=== PATIENT | male | born 1965 | race Caucasian/White ===

== ENCOUNTER → 2017-01-19 | Outpatient (REF) | payer OTHER ==
[2017-01-19 13:15] LABS: ALBUMIN 4.2 GM/DL (3.2-5.2); ALBUMIN/GLOBULIN RATIO 0.98 (1.00-1.93); ALKALINE PHOSPHATASE 87 U/L (45-117); ALT/SGPT 54 U/L (12-78); ANION GAP 7 MEQ/L (8-16); AST/SGOT 38 U/L (15-37); BILIRUBIN,TOTAL 0.8 MG/DL (0.2-1.0); BLOOD UREA NITROGEN 14 MG/DL (7-18); CALCIUM LEVEL 9.8 MG/DL (8.5-10.1); CARBON DIOXIDE LEVEL 28 MEQ/L (21-32); CHLORIDE LEVEL 104 MEQ/L (98-107); CHOLESTEROL LEVEL 208 MG/DL (<200); CREATININE FOR GFR 1.02 MG/DL (0.70-1.30); GLOMERULAR FILTRATION RATE > 60.0 (>56); GLUCOSE, FASTING 95 MG/DL (70-105); POTASSIUM SERUM 4.4 MEQ/L (3.5-5.1); SODIUM LEVEL 139 MEQ/L (136-145); TOTAL PROTEIN 8.5 GM/DL (6.4-8.2); TRIGLYCERIDES LEVEL 146 MG/DL (<150)
== END ==
LOC: M SFHCADAM 08:00
PROVIDERS: ATTEND Family Medicine
DX: E78.2 Mixed hyperlipidemia (principal)

== ENCOUNTER → 2017-07-28 | Outpatient (REF) | payer OTHER ==
[2017-07-28 12:44] LABS: HEMATOCRIT 52.4 % (42.0-52.0); HEMOGLOBIN 18.3 g/dl (14.0-18.0); MEAN CORPUSCULAR HEMOGLOBIN 32.4 pg (27.0-33.0); MEAN CORPUSCULAR HGB CONC 34.9 g/dl (32.0-36.5); MEAN CORPUSCULAR VOLUME 92.9 fl (80.0-96.0); PLATELET COUNT, AUTOMATED 211 10^3/uL (150-450); RED BLOOD COUNT 5.64 10^6/uL (4.30-6.10); RED CELL DISTRIBUTION WIDTH 13.2 % (11.5-14.5); WHITE BLOOD COUNT 5.9 10^3/uL (4.0-10.0)
[2017-07-28 12:54] LABS: ALBUMIN 4.2 GM/DL (3.2-5.2); ALBUMIN/GLOBULIN RATIO 1.62 (1.00-1.93); ALKALINE PHOSPHATASE 99 U/L (45-117); ALT/SGPT 41 U/L (12-78); ANION GAP 6 MEQ/L (8-16); AST/SGOT 23 U/L (7-37); BILIRUBIN,TOTAL 0.4 MG/DL (0.2-1.0); BLOOD UREA NITROGEN 22 MG/DL (7-18); CALCIUM LEVEL 8.9 MG/DL (8.5-10.1); CARBON DIOXIDE LEVEL 29 MEQ/L (21-32); CHLORIDE LEVEL 104 MEQ/L (98-107); CHOLESTEROL LEVEL 250 MG/DL (<200); CHOLESTEROL RISK RATIO 6.097 (<5); CREATININE FOR GFR 1.12 MG/DL (0.70-1.30); GLOMERULAR FILTRATION RATE > 60.0 (>56); GLUCOSE, FASTING 103 MG/DL (70-105); HDL CHOLESTEROL 41 MG/DL (>40); LDL CHOLESTEROL 141.4 MG/DL (<100); NON-HDL-C 209 MG/DL; POTASSIUM SERUM 4.9 MEQ/L (3.5-5.1); PSA SCREENING 4.17 NG/ML (< 4.0); SODIUM LEVEL 139 MEQ/L (136-145); TOTAL PROTEIN 6.8 GM/DL (6.4-8.2); TRIGLYCERIDES LEVEL 338 MG/DL (<150)
== END ==
LOC: M SFHCADAM 08:41
DX: D75.1 Secondary polycythemia (principal); K62.5 Hemorrhage of anus and rectum; I10 Essential (primary) hypertension; E78.2 Mixed hyperlipidemia; Z12.5 Encounter for screening for malignant neoplasm of prostate

== ENCOUNTER 2017-08-06 10:18 | Day surgery (SDC) | payer OTHER ==
[2017-08-06] MEDS: NS 1,000 ML IV (10:33)
[2017-08-06] MEDS ORDERED: LIDOCAINE 2% INJ 100 MG/5 ML SDV (FOR ANES.) As Ordered (10:57)
[2017-08-06] MEDS ORDERED: PROPOFOL 200 MG/20 ML VIAL As Ordered ×2 (10:57)
[2017-08-06] MEDS ORDERED: GLYCOPYRROLATE INJ 0.2 MG/ML 2 ML VIAL As Ordered (11:11)
== END 2017-08-06 11:53 | disposition home or self-care (01) ==
LOC: M OPP 10:18
DX: Z12.11 Encounter for screening for malignant neoplasm of colon (principal); K64.8 Other hemorrhoids; K62.5 Hemorrhage of anus and rectum; R12 Heartburn; K22.8 Other specified diseases of esophagus; I10 Essential (primary) hypertension; K44.9 Diaphragmatic hernia without obstruction or gangrene; K21.9 Gastro-esophageal reflux disease without esophagitis; Z85.828 Personal history of other malignant neoplasm of skin; M54.9 Dorsalgia, unspecified; J45.909 Unspecified asthma, uncomplicated; G47.8 Other sleep disorders; G47.30 Sleep apnea, unspecified; R06.83 Snoring; Z79.82 Long term (current) use of aspirin; Z79.899 Other long term (current) drug therapy
CPT/HCPCS: 45378

== ENCOUNTER → 2018-02-16 | Outpatient (REF) | payer OTHER ==
[2018-02-16 12:50] LABS: ALBUMIN 3.8 GM/DL (3.2-5.2); ALBUMIN/GLOBULIN RATIO 1.31 (1.00-1.93); ALKALINE PHOSPHATASE 86 U/L (45-117); ALT/SGPT 44 U/L (12-78); ANION GAP 5 MEQ/L (8-16); AST/SGOT 20 U/L (7-37); BILIRUBIN,TOTAL 0.4 MG/DL (0.2-1.0); BLOOD UREA NITROGEN 20 MG/DL (7-18); CALCIUM LEVEL 8.7 MG/DL (8.5-10.1); CARBON DIOXIDE LEVEL 31 MEQ/L (21-32); CHLORIDE LEVEL 109 MEQ/L (98-107); CHOLESTEROL LEVEL 199 MG/DL (<200); CHOLESTEROL RISK RATIO 5.236 (<5); CREATININE FOR GFR 1.24 MG/DL (0.70-1.30); GLOMERULAR FILTRATION RATE > 60.0 (>56); GLUCOSE, FASTING 110 MG/DL (70-100); HDL CHOLESTEROL 38 MG/DL (>40); NON-HDL-C 161 MG/DL; PROSTATIC SPECIFIC AG MONITOR 3.17 NG/ML (< 4.0); SODIUM LEVEL 145 MEQ/L (136-145); TOTAL PROTEIN 6.7 GM/DL (6.4-8.2); TRIGLYCERIDES LEVEL 265 MG/DL (<150)
[2018-02-16 12:58] LABS: HEMOGLOBIN 17.7 g/dl (13.5-17.5); MEAN CORPUSCULAR HEMOGLOBIN 32.6 pg (27.0-33.0); MEAN CORPUSCULAR VOLUME 95.8 fl (80.0-96.0); PLATELET COUNT, AUTOMATED 172 10^3/uL (150-450); RED BLOOD COUNT 5.43 10^6/uL (4.30-6.10); RED CELL DISTRIBUTION WIDTH 13.3 % (11.5-14.5)
== END ==
LOC: M SFHCADAM 08:03
DX: D75.1 Secondary polycythemia (principal); E78.2 Mixed hyperlipidemia; R97.20 Elevated prostate specific antigen [PSA]

== ENCOUNTER → 2018-08-04 | Outpatient (CLI) | payer OTHER ==
[~2018-08-04] MED LIST: ASPI1TAB PO; CLAR10CA3 PO; LISI10TA4 PO; OMEP20CA3 PO; VENTAER INH; VIAG100T PO
--- NOTE | 2018-08-04 14:13 | REP ---
Emergency MRI study right knee without contrast: History: Rule out quadriceps tendon tear. No comparison imaging. Technique: Axial, coronal and sagittal imaging planes were utilized. T1 and T2-weighted scans are included with and without fat saturation. MRI findings: Patellar and quadriceps tendons appear intact. Medial and lateral patellar retinacular structures are intact. There is a focus of T2 hyperintensity and swelling at the distal attachment of the quadriceps tendon consistent with a partial tear. No retraction is seen. There is a small joint effusion. There is no evidence of Meeks's cyst. There is diffuse subcutaneous edema almost circumferentially about the knee. The anterior and posterior cruciate ligaments appear intact. There is a small subcortical cyst beneath the tibial spines in the proximal tibia. There is no evidence of medial or lateral collateral ligament disruption. There is, however, abnormal signal intensity and some irregularity of the posterior body of the medial meniscus and of the posterior horn of the medial meniscus consistent with a tear. Signal intensity is seen along the inferior aspect of the midbody of the medial meniscus as well. The lateral meniscus appears intact. No articular cartilage abnormality is appreciated. There is a bone island in the lateral femoral condyle and another in the proximal fibula. Impression: There is evidence of a posterior horn medial meniscal tear and degenerative changes seen in the midbody of the medial meniscus. A joint effusion is noted. There is periarticular subcutaneous edema. There is a focus of T2 hyperintensity in the distal quadriceps tendon at its insertion on the upper pole of the patella which may be a small focal tear. No complete tear is seen. Electronically Signed by Ulises Gonzalez MD 08/04/2018 04:25 P
== END ==
LOC: M RAD 12:13
PROVIDERS: ATTEND Orthopaedic Surgery Sports Medicine
DX: M17.11 Unilateral primary osteoarthritis, right knee (principal); M85.461 Solitary bone cyst, right tibia and fibula; M25.461 Effusion, right knee; R60.0 Localized edema; M66.861 Spontaneous rupture of other tendons, right lower leg

== ENCOUNTER → 2019-02-15 | Outpatient (REF) | payer OTHER ==
[~2019-02-15] MED LIST changes: -ASPI1TAB PO; +ASPI81TA26 PO; -OMEP20CA3 PO; +OMEP20CA4 PO
[2019-02-15 12:33] LABS: BASO # 0.1 10^3/uL (0.0-0.2); BASO % 0.9 % (0.0-1.0); EOS # 0.1 10^3/uL (0.0-0.50); EOS % 2.4 % (0.0-3.0); HEMATOCRIT 50.2 % (42.0-52.0); HEMOGLOBIN 17.7 g/dl (13.5-17.5); LYMPH # 1.4 10^3/uL (1.5-4.5); LYMPH % 26.5 % (24.0-44.0); MEAN CORPUSCULAR HEMOGLOBIN 32.5 pg (27.0-33.0); MEAN CORPUSCULAR HGB CONC 35.3 g/dl (32.0-36.5); MEAN CORPUSCULAR VOLUME 92.3 fl (80.0-96.0); MONO # 0.6 10^3/uL (0.0-0.8); MONO % 10.6 % (0.0-5.0); NEUTROPHILS # 3.2 10^3/uL (1.8-7.7); NEUTROPHILS % 59.2 % (36.0-66.0); PLATELET COUNT, AUTOMATED 195 10^3/uL (150-450); RED BLOOD COUNT 5.44 10^6/uL (4.30-6.10); WHITE BLOOD COUNT 5.4 10^3/uL (4.0-10.0)
[2019-02-15 12:56] LABS: ALBUMIN 3.9 GM/DL (3.2-5.2); ALT/SGPT 40 U/L (12-78); AMYLASE 54 U/L (25-115); BILIRUBIN,TOTAL 0.4 MG/DL (0.2-1.0); BLOOD UREA NITROGEN 22 MG/DL (7-18); CALCIUM LEVEL 9.2 MG/DL (8.5-10.1); CARBON DIOXIDE LEVEL 29 MEQ/L (21-32); CHLORIDE LEVEL 107 MEQ/L (98-107); CREATININE FOR GFR 1.32 MG/DL (0.70-1.30); GLOMERULAR FILTRATION RATE > 60.0 (>56); GLUCOSE, FASTING 92 MG/DL (70-100); LIPASE 240 U/L (73-393); POTASSIUM SERUM 4.9 MEQ/L (3.5-5.1); SODIUM LEVEL 141 MEQ/L (136-145); TOTAL PROTEIN 6.6 GM/DL (6.4-8.2)
== END ==
LOC: M LABDRWAD 12:11
PROVIDERS: ATTEND Physician Assistant Medical
DX: R10.9 Unspecified abdominal pain (principal)

== ENCOUNTER → 2019-04-07 | Outpatient (REF) | payer OTHER ==
[2019-04-07 12:37] LABS: HEMATOCRIT 52.2 % (42.0-52.0); MEAN CORPUSCULAR HEMOGLOBIN 32.3 pg (27.0-33.0); MEAN CORPUSCULAR HGB CONC 34.5 g/dl (32.0-36.5); MEAN CORPUSCULAR VOLUME 93.7 fl (80.0-96.0); PLATELET COUNT, AUTOMATED 183 10^3/uL (150-450); RED BLOOD COUNT 5.57 10^6/uL (4.30-6.10); WHITE BLOOD COUNT 5.9 10^3/uL (4.0-10.0)
[2019-04-07 12:50] LABS: ALT/SGPT 42 U/L (12-78); BILIRUBIN,TOTAL 0.4 MG/DL (0.2-1.0); BLOOD UREA NITROGEN 24 MG/DL (7-18); CALCIUM LEVEL 9.4 MG/DL (8.5-10.1); CARBON DIOXIDE LEVEL 25 MEQ/L (21-32); CHLORIDE LEVEL 106 MEQ/L (98-107); CHOLESTEROL LEVEL 227 MG/DL (<200); CREATININE FOR GFR 0.94 MG/DL (0.70-1.30); GLOMERULAR FILTRATION RATE > 60.0 (>56); GLUCOSE, FASTING 92 MG/DL (70-100); HDL CHOLESTEROL 39 MG/DL (>40); LDL CHOLESTEROL 128 MG/DL (<100); NON-HDL-C 188 MG/DL; PROSTATIC SPECIFIC AG MONITOR 3.11 NG/ML (< 4.00); SODIUM LEVEL 141 MEQ/L (136-145); TOTAL PROTEIN 6.6 GM/DL (6.4-8.2); TRIGLYCERIDES LEVEL 298 MG/DL (<150)
[2019-04-07 13:58] LABS: HEMOGLOBIN A1c 5.4 %
== END ==
LOC: M SFHCADAM 08:24
PROVIDERS: ATTEND Family Medicine
DX: D75.1 Secondary polycythemia (principal); E78.2 Mixed hyperlipidemia; R73.03 Prediabetes; R97.20 Elevated prostate specific antigen [PSA]

== ENCOUNTER → 2019-05-30 | Outpatient (CLI) | payer OTHER ==
[~2019-05-30] MED LIST changes: +IRBE75TA5 PO
--- NOTE | 2019-05-31 04:36 | REP ---
Clinical: Bronchitis . Comparison: None . Technique: PA and lateral. Findings: The mediastinum and cardiac silhouette are normal. The lung madera are clear and without acute consolidation, effusion, or pneumothorax. The skeletal structures are intact and normal. Impression: 1. No acute cardiopulmonary process. Electronically Signed by Jose Oliver MD 05/31/2019 04:28 A
== END ==
LOC: M ADAMS 08:34
PROVIDERS: ATTEND Physician Assistant
DX: J40 Bronchitis, not specified as acute or chronic (principal)

== ENCOUNTER → 2019-06-28 | Outpatient (REF) | payer OTHER ==
[~2019-06-28] MED LIST changes: +OMEP-172 PO; -OMEP20CA4 PO
[2019-06-28 13:42] LABS: HEMATOCRIT 53.8 % (42.0-52.0); HEMOGLOBIN 18.7 g/dl (13.5-17.5); MEAN CORPUSCULAR HEMOGLOBIN 32.5 pg (27.0-33.0); MEAN CORPUSCULAR HGB CONC 34.8 g/dl (32.0-36.5); MEAN CORPUSCULAR VOLUME 93.4 fl (80.0-96.0); PLATELET COUNT, AUTOMATED 206 10^3/uL (150-450); RED BLOOD COUNT 5.76 10^6/uL (4.30-6.10); WHITE BLOOD COUNT 5.6 10^3/uL (4.0-10.0)
[2019-06-28 14:00] LABS: BLOOD UREA NITROGEN 19 MG/DL (7-18); CALCIUM LEVEL 9.3 MG/DL (8.5-10.1); CARBON DIOXIDE LEVEL 29 MEQ/L (21-32); CHLORIDE LEVEL 108 MEQ/L (98-107); CREATININE FOR GFR 1.18 MG/DL (0.70-1.30); GLOMERULAR FILTRATION RATE > 60.0 (>56); GLUCOSE, FASTING 93 MG/DL (70-100); POTASSIUM SERUM 5.2 MEQ/L (3.5-5.1); SODIUM LEVEL 140 MEQ/L (136-145)
== END ==
LOC: M SFHCADAM 10:50
PROVIDERS: ATTEND Family Medicine
DX: J44.9 Chronic obstructive pulmonary disease, unspecified (principal); I10 Essential (primary) hypertension

== ENCOUNTER → 2019-06-29 | Outpatient (CLI) | payer OTHER ==
[~2019-06-29] MED LIST changes: +ISOVUE-370 76% 100ML VIAL (Q9967) As Ordered ONE
--- NOTE | 2019-06-29 16:00 | REP ---
Clinical: Dyspnea . Technique: Axial contrast enhanced images from the thoracic inlet to the upper abdomen using 100 ml Isovue 370 intravenous contrast material with multiplanar re-formations. Findings: Satisfactory enhancement of the pulmonary vasculature is achieved and no filling defects are identified to suggest pulmonary embolus. Further evaluation of the mediastinum demonstrates normal thoracic aorta, heart and pericardium. The bilateral lung madera are well aerated and clear without consolidation pleural effusion or pneumothorax. Tracheobronchial tree is patent. No nodule or mass lesion is identified. No adenopathy noted. Surrounding musculoskeletal structures intact Impression: No evidence for pulmonary embolus. No acute mediastinal or pleural parenchymal process. Electronically Signed by Jose Oliver MD 06/29/2019 03:52 P
== END ==
LOC: M RAD 14:57
PROVIDERS: ATTEND Family Medicine
DX: J44.9 Chronic obstructive pulmonary disease, unspecified (principal); R05 Cough; R06.09 Other forms of dyspnea
CPT/HCPCS: 71275; Q9967

== ENCOUNTER → 2019-09-19 | Outpatient (REF) | payer OTHER ==
[~2019-09-19] MED LIST changes: +IRBE75TA4 PO; -IRBE75TA5 PO; -ISOVUE-370 76% 100ML VIAL (Q9967) As Ordered ONE; -OMEP-172 PO; +OMEP1CAP73 PO
[2019-09-19 12:57] LABS: HEMATOCRIT 55.2 % (42.0-52.0); MEAN CORPUSCULAR HEMOGLOBIN 31.1 pg (27.0-33.0); MEAN CORPUSCULAR HGB CONC 34.4 g/dl (32.0-36.5); MEAN CORPUSCULAR VOLUME 90.5 fl (80.0-96.0); PLATELET COUNT, AUTOMATED 220 10^3/uL (150-450); WHITE BLOOD COUNT 5.6 10^3/uL (4.0-10.0)
[2019-09-19 13:09] LABS: PERCENT SATURATION 58.7 % (19.7-50.0)
== END ==
LOC: M SFHCADAM 10:45
PROVIDERS: ATTEND Family Medicine
DX: E83.110 Hereditary hemochromatosis (principal)

== ENCOUNTER → 2019-11-24 | Outpatient (CLI) | payer OTHER ==
[~2019-11-24] MED LIST changes: +LISI-542 PO
== END ==
LOC: M LAB 15:27
PROVIDERS: ATTEND Internal Medicine Hematology & Oncology
DX: D75.1 Secondary polycythemia (principal); Z53.9 Procedure and treatment not carried out, unspecified reason

== ENCOUNTER → 2019-11-27 | Outpatient (CLI) | payer OTHER ==
[2019-11-27 12:12] LABS: BASO # 0.1 10^3/uL (0.0-0.2); BASO % 0.8 % (0.0-1.0); EOS # 0.3 10^3/uL (0.0-0.5); EOS % 4.3 % (0.0-3.0); HEMATOCRIT 51.1 % (42.0-52.0); HEMOGLOBIN 17.7 g/dl (13.5-17.5); LYMPH # 1.5 10^3/uL (1.5-5.0); MEAN CORPUSCULAR HEMOGLOBIN 31.2 pg (27.0-33.0); MEAN CORPUSCULAR HGB CONC 34.6 g/dl (32.0-36.5); MEAN CORPUSCULAR VOLUME 90.1 fl (80.0-96.0); MONO # 0.7 10^3/uL (0.0-0.8); MONO % 11.3 % (0.0-5.0); NEUTROPHILS # 3.6 10^3/uL (1.5-8.5); NEUTROPHILS % 58.9 % (36.0-66.0); PLATELET COUNT, AUTOMATED 196 10^3/uL (150-450); RED BLOOD COUNT 5.67 10^6/uL (4.30-6.10); WHITE BLOOD COUNT 6.1 10^3/uL (4.0-10.0)
[2019-11-27 12:25] LABS: FERRITIN 155 NG/ML (26-388)
== END ==
LOC: M LAB 11:08
PROVIDERS: ATTEND Internal Medicine Hematology & Oncology
DX: D75.1 Secondary polycythemia (principal)

== ENCOUNTER → 2019-12-19 | Outpatient (CLI) | payer OTHER ==
--- NOTE | 2019-12-20 03:03 | REP ---
Clinical: History of hemochromatosis and polycythemia. Technique: Real time childs scale ultrasound examination using curved array transducer. Findings: The liver is increased echogenicity with poor through transmission suggesting fatty infiltration and/or hepatocellular disease. No obvious focal hepatic lesion identified. Spleen is normal in contour, size, echogenicity. The pancreas is incompletely evaluated due to interposed bowel gas but visualized portions appear normal. The gallbladder is unremarkable and without gallstones, wall thickening, or pericholecystic fluid. No biliary ductal dilatation is appreciated and the common bile duct measures 5 mm diameter. The bilateral kidneys are normal in reniform shape and echo texture without hydronephrosis or obvious abnormality. Right kidney measures 11.2 x 5.7 x 5.0 cm. Left kidney measures 11.6 x 5.4 x 5.8 cm. Visualized abdominal aorta appears normal but limited due to overlying bowel gas. No ascites. Impression: 1. Findings suggesting hepatocellular disease. No obvious focal hepatic lesion identified. Electronically Signed by Jose Oliver MD 12/20/2019 02:54 A
== END ==
LOC: M RAD 08:31
PROVIDERS: ATTEND Internal Medicine Hematology & Oncology
DX: D75.1 Secondary polycythemia (principal); K76.89 Other specified diseases of liver

== ENCOUNTER 2020-02-29 11:04 | Emergency (ER) | payer OTHER ==
[2020-02-29] MEDS ORDERED: MORPHINE 4 MG/ML 1ML VIAL/SYRINGE (J2270) As Ordered ONE (11:44)
[2020-02-29] MEDS ORDERED: ONDANSETRON 4MG/2ML VIAL As Ordered ONE (11:44)
[2020-02-29] MEDS ORDERED: ONDANSETRON 4MG/2ML VIAL ONE (11:44)
[2020-02-29] MEDS ORDERED: MORPHINE 4 MG/ML 1ML VIAL/SYRINGE (J2270) ONE (11:44)
[2020-02-29] MEDS ORDERED: ISOVUE-370 76% 100ML VIAL As Ordered ONE (14:09)
[2020-02-29] MEDS ORDERED: MORPHINE 2 MG/ML 1ML VIAL (J2270) ONE (14:46)
[2020-02-29] MEDS ORDERED: MORPHINE 2 MG/ML 1ML VIAL (J2270) As Ordered ONE (14:46)
[2020-04-14 04:49] LABS: APPEARANCE, URINE CLEAR (CLEAR); BACTERIA, URINE AUTO NEGATIVE (NEGATIVE); BILIRUBIN, URINE AUTO NEGATIVE (NEGATIVE); BLOOD, URINE BLOOD 1+ (NEGATIVE); COLOR, URINE YELLOW (YELLOW); GLUCOSE, URINE (UA) AUTO NEGATIVE (NEGATIVE); KETONE, URINE AUTO TRACE mg/dL (NEGATIVE); LEUKOCYTE ESTERASE, URINE AUTO NEGATIVE (NEGATIVE); MUCUS, URINE SMALL (NEGATIVE); NITRITE, URINE AUTO NEGATIVE (NEGATIVE); PROTEIN, URINE AUTO 1+ mg/dL (NEGATIVE); RBC, URINE AUTO 3 /HPF (0-3); SPECIFIC GRAVITY URINE AUTO 1.027 (1.002-1.035); SQUAMOUS EPITHELIAL CELL UR AU 0 /HPF (0-6); UROBILINOGEN, URINE AUTO 0.2 mg/dL (0.0-2.0); WBC, URINE AUTO 1 /HPF (0-3)
[2020-04-14 05:06] LABS: BASO % 0.6 % (0.0-1.0); EOS # 0.1 10^3/uL (0.0-0.5); EOS % 0.9 % (0.0-3.0); HEMATOCRIT 50.9 % (42.0-52.0); HEMOGLOBIN 17.1 g/dl (13.5-17.5); LYMPH # 0.9 10^3/uL (1.5-5.0); LYMPH % 12.4 % (24.0-44.0); MEAN CORPUSCULAR HEMOGLOBIN 30.3 pg (27.0-33.0); MEAN CORPUSCULAR HGB CONC 33.6 g/dl (32.0-36.5); MEAN CORPUSCULAR VOLUME 90.1 fl (80.0-96.0); MONO # 0.5 10^3/uL (0.0-0.8); MONO % 7.7 % (0.0-5.0); NEUTROPHILS # 5.5 10^3/uL (1.5-8.5); NEUTROPHILS % 78.1 % (36.0-66.0); PLATELET COUNT, AUTOMATED 219 10^3/uL (150-450); RED BLOOD COUNT 5.65 10^6/uL (4.30-6.10)
[2020-05-20 17:32] LABS: BLOOD UREA NITROGEN 19 MG/DL (7-18); CALCIUM LEVEL 9.1 MG/DL (8.5-10.1); CARBON DIOXIDE LEVEL 29 MEQ/L (21-32); CHLORIDE LEVEL 105 MEQ/L (98-107); CREATININE FOR GFR 1.19 MG/DL (0.70-1.30); GLOMERULAR FILTRATION RATE > 60.0 (>56); GLUCOSE, FASTING 109 MG/DL (70-100); POTASSIUM SERUM 5.1 MEQ/L (3.5-5.1); SODIUM LEVEL 137 MEQ/L (136-145)
== END 2020-02-29 16:40 | disposition home or self-care (01) ==
LOC: M ED 11:04
DX: I72.3 Aneurysm of iliac artery (principal); R10.32 Left lower quadrant pain; K76.0 Fatty (change of) liver, not elsewhere classified; K42.9 Umbilical hernia without obstruction or gangrene; M51.37 Other intervertebral disc degeneration, lumbosacral region; M51.27 Other intervertebral disc displacement, lumbosacral region; I10 Essential (primary) hypertension; K21.9 Gastro-esophageal reflux disease without esophagitis; Z79.899 Other long term (current) drug therapy
CPT/HCPCS: 74174; 74176; 80048; 81001; 85025; 96374; 96375; 99284; J2270; J2405; Q9967

== ENCOUNTER → 2021-04-22 | Outpatient (REF) | payer OTHER ==
[~2021-04-22] MED LIST changes: -LISI-542 PO; +LISI-898 PO; +LISI10TA22 PO; -LISI10TA4 PO
== END ==
LOC: M SFHCADAM 12:17
PROVIDERS: ATTEND Family Medicine
DX: D75.1 Secondary polycythemia (principal); M25.532 Pain in left wrist; I72.3 Aneurysm of iliac artery; E78.2 Mixed hyperlipidemia; M10.9 Gout, unspecified; R73.03 Prediabetes; R97.20 Elevated prostate specific antigen [PSA]

== ENCOUNTER → 2021-04-23 | Outpatient (CLI) | payer OTHER ==
--- NOTE | 2021-04-23 09:18 | REP ---
INDICATION: LEFT WRIST PAIN AND SPONDYLOLISTHESIS. COMPARISON: Comparison is made with images from CT study abdomen and pelvis February 29, 2020. Comparison lumbar spine radiographs are from July 08. TECHNIQUE: Five views of the lumbar spine are provided. FINDINGS: Five views of the lumbar spine demonstrates a grade 2 L5-S1 spondylolisthesis, 19.5 mm. This is associated with bilateral pars interarticularis defects. The spondylolisthesis measured 13 mm by my measurement on the CT study from February 29, 2020. This may have progressed somewhat since the CT. There is definite progression since the July 08, 2009 prior study when the spondylolisthesis measures 13 mm by my measurement. There is osteoarthritic facet hypertrophy and sclerosis at L5-S1 associated with this. There are degenerative disc changes at L4-5 with disc space narrowing and anterior osteophyte formation. Discogenic spurring is seen anteriorly at L3-4, L2-3, and L1-2. Mild discogenic spurs are seen in the lower thoracic levels visualized on lateral radiograph. Pedicles and posterior elements are otherwise intact. Vertebral body heights are preserved. Alignment is otherwise normal. Sacrum and SI joints are intact. Psoas margins are symmetric. IMPRESSION: 1. Bilateral pars interarticularis defects at L5 with a grade 2 19.5 mm L5-S1 spondylolisthesis. This has progressed since the 2008 prior radiographs and possibly since the more recent CT imaging. 2. Diffuse degenerative disc disease. <Electronically signed by Reggie Gonzalez > 04/23/21 [id number]
--- NOTE | 2021-04-23 09:20 | REP ---
INDICATION: LEFT WRIST PAIN AND SPONDYLOLISTHESIS. COMPARISON: None. TECHNIQUE: Four views of the left wrist are provided. FINDINGS: Overall mineralization pattern is normal. There is minimal spurring at the 1st carpometacarpal articulation. Bones, joints, and soft tissues are otherwise unremarkable. No erosive changes seen. No fracture is noted. IMPRESSION: Early osteoarthritic spurring at the 1st M CC joint. Otherwise negative. <Electronically signed by Reggie Gonzalez > 04/23/21 [id number]
== END ==
LOC: M ADAMS 08:16
PROVIDERS: ATTEND Family Medicine
DX: M25.732 Osteophyte, left wrist (principal); M51.37 Other intervertebral disc degeneration, lumbosacral region; M43.17 Spondylolisthesis, lumbosacral region; M25.532 Pain in left wrist

== ENCOUNTER → 2021-04-23 | Outpatient (REF) | payer OTHER ==
[2021-04-23 12:41] LABS: APPEARANCE, URINE CLEAR (CLEAR); BACTERIA, URINE AUTO NEGATIVE (NEGATIVE); BILIRUBIN, URINE AUTO NEGATIVE (NEGATIVE); BLOOD, URINE BLOOD 1+ (NEGATIVE); COLOR, URINE STRAW (YELLOW); GLUCOSE, URINE (UA) AUTO NEGATIVE (NEGATIVE); KETONE, URINE AUTO NEGATIVE (NEGATIVE); LEUKOCYTE ESTERASE, URINE AUTO NEGATIVE (NEGATIVE); MUCUS, URINE SMALL (NEGATIVE); NITRITE, URINE AUTO NEGATIVE (NEGATIVE); PROTEIN, URINE AUTO NEGATIVE (NEGATIVE); RBC, URINE AUTO 0 /HPF (0-3); SPECIFIC GRAVITY URINE AUTO 1.008 (1.002-1.035); SQUAMOUS EPITHELIAL CELL UR AU 0 /HPF (0-6); UROBILINOGEN, URINE AUTO 0.2 mg/dL (0.0-2.0); WBC, URINE AUTO 0 /HPF (0-3)
[2021-04-23 12:46] LABS: HEMATOCRIT 51.3 % (42.0-52.0); HEMOGLOBIN 17.3 g/dl (13.5-17.5); MEAN CORPUSCULAR HEMOGLOBIN 29.1 pg (27.0-33.0); MEAN CORPUSCULAR HGB CONC 33.7 g/dl (32.0-36.5); MEAN CORPUSCULAR VOLUME 86.4 fl (80.0-96.0); PLATELET COUNT, AUTOMATED 207 10^3/uL (150-450); RED BLOOD COUNT 5.94 10^6/uL (4.30-6.10); WHITE BLOOD COUNT 5.5 10^3/uL (4.0-10.0)
[2021-04-23 13:02] LABS: HEMOGLOBIN A1c 5.8 %
[2021-04-23 13:21] LABS: ALBUMIN 3.9 GM/DL (3.2-5.2); ALT/SGPT 41 U/L (12-78); BILIRUBIN,TOTAL 0.4 MG/DL (0.2-1.0); BLOOD UREA NITROGEN 21 MG/DL (7-18); CALCIUM LEVEL 9.5 MG/DL (8.5-10.1); CARBON DIOXIDE LEVEL 28 MEQ/L (21-32); CHLORIDE LEVEL 102 MEQ/L (98-107); CHOLESTEROL LEVEL 207 MG/DL (<200); CHOLESTEROL RISK RATIO 5.594 (<5); CREATININE FOR GFR 1.09 MG/DL (0.70-1.30); FREE T4 0.95 NG/DL (0.76-1.46); GLOMERULAR FILTRATION RATE > 60.0 (>56); GLUCOSE, FASTING 106 MG/DL (70-100); HDL CHOLESTEROL 37 MG/DL (>40); LDL CHOLESTEROL 114 MG/DL (<100); NON-HDL-C 170 MG/DL; POTASSIUM SERUM 5.4 MEQ/L (3.5-5.1); SODIUM LEVEL 137 MEQ/L (136-145); TOTAL PROTEIN 6.9 GM/DL (6.4-8.2); TRIGLYCERIDES LEVEL 282 MG/DL (<150); URIC ACID 7.2 MG/DL (3.5-7.2)
== END ==
LOC: M SFHCADAM 08:40
PROVIDERS: ATTEND Family Medicine
DX: D75.1 Secondary polycythemia (principal); M25.532 Pain in left wrist; I72.3 Aneurysm of iliac artery; E78.2 Mixed hyperlipidemia; M10.9 Gout, unspecified; R73.03 Prediabetes; R97.20 Elevated prostate specific antigen [PSA]

== ENCOUNTER → 2021-06-02 | Outpatient (CLI) | payer OTHER ==
--- NOTE | 2021-06-02 10:15 | REP ---
INDICATION: ANEURYSM OF ILIAC ARTERY. COMPARISON: None. TECHNIQUE: Noncontrast scanning through the abdomen and pelvis with coronal and sagittal reconstructions. FINDINGS: CT abdomen: Lung bases are clear. Heart is not enlarged there is no pericardial thickening or effusion. No hiatal hernia is seen. Liver, spleen, gallbladder, pancreas, adrenal glands and kidneys are all grossly unremarkable. There is no periaortic, other retroperitoneal or mesenteric pathologic sized lymphadenopathy. Colon with stool and gas scattered throughout shows no sign of colitis or diverticulitis. Small bowel loops grossly unremarkable. There is no evidence for acute appendicitis. There is again seen some minimal nonspecific infiltration of the mesenteric fat without adjacent small bowel or colonic wall thickening, diverticulosis or other acute finding. Bone windows again show bilateral L5 spondylolysis with grade 2 spondylolisthesis of L5 on S1, unchanged degenerative disc changes at this level and to a lesser extent other levels. No compression fractures. Posterior elements otherwise intact and the visualized ribs unremarkable. The abdominal aorta shows some atherosclerotic calcifications distally but no aneurysm. The left common iliac artery however does show fusiform aneurysm at which I have a maximum diameter of 2.7 cm compared to 2.6 cm 15 months ago. This extends to the takeoff of the internal iliac artery. There is no other aneurysmal dilatation of iliac vessels. CT pelvis:0 the the sacrum, SI joints, pelvis and hips show some minor degenerative changes but no destructive lesions or fractures. Bladder without wall thickening, mass or stone. No layering debris. There is no dilated ureter at in the pelvis or ureteral stone. Distal left colon sigmoid and rectum unremarkable. Small bowel loops in the pelvis unremarkable. There is no ventral or inguinal hernia nor pathologic sized inguinal adenopathy. IMPRESSION: 1. 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 No other iliac artery aneurysm and normal aortic caliber noted. 2. There is bilateral L5 spondylolysis with grade 2 spondylolisthesis of L5 on S1, stable. There is no other significant finding or interval change. <Electronically signed by Mac Tejada > 06/02/21 1011
== END ==
LOC: M RAD 08:59
PROVIDERS: ATTEND Surgery Vascular Surgery
DX: I72.3 Aneurysm of iliac artery (principal); I70.0 Atherosclerosis of aorta; M47.817 Spondylosis without myelopathy or radiculopathy, lumbosacral region

== ENCOUNTER → 2021-07-15 | Outpatient (REF) | payer OTHER | LOC: M LABDRWAD 12:31 | PROVIDERS: ATTEND Nurse Practitioner Women's Health | DX: R97.20 Elevated prostate specific antigen [PSA] (principal) ==

== ENCOUNTER → 2021-07-30 | Outpatient (REF) | payer OTHER ==
[~2021-07-30] MED LIST changes: -LISI-898 PO; +LISI5TAB11 PO
== END ==
LOC: M SMT PRO 09:16
PROVIDERS: ATTEND Urology
DX: C61 Malignant neoplasm of prostate (principal)
CPT/HCPCS: 88341; 88342; G0416

== ENCOUNTER → 2021-08-21 | Outpatient (REF) | payer OTHER | LOC: M SFHCADAM 16:49 | PROVIDERS: ATTEND Physician Assistant | DX: J01.90 Acute sinusitis, unspecified (principal) ==

== ENCOUNTER → 2021-10-08 | Outpatient (REF) | payer OTHER | LOC: M SFHCADAM 15:37 | PROVIDERS: ATTEND Family Medicine | DX: Z01.818 Encounter for other preprocedural examination (principal); C61 Malignant neoplasm of prostate ==

== ENCOUNTER → 2021-10-08 | Outpatient (REF) | payer OTHER ==
[2021-10-08 12:51] LABS: ALBUMIN 4.2 GM/DL (3.2-5.2); ALT/SGPT 48 U/L (12-78); BILIRUBIN,TOTAL 0.4 MG/DL (0.2-1.0); BLOOD UREA NITROGEN 17 MG/DL (7-18); CALCIUM LEVEL 9.7 MG/DL (8.5-10.1); CARBON DIOXIDE LEVEL 29 MEQ/L (21-32); CHLORIDE LEVEL 106 MEQ/L (98-107); GLOMERULAR FILTRATION RATE > 60.0 (>56); GLUCOSE, FASTING 106 MG/DL (70-100); POTASSIUM SERUM 4.9 MEQ/L (3.5-5.1); SODIUM LEVEL 140 MEQ/L (136-145); TOTAL PROTEIN 7.4 GM/DL (6.4-8.2)
[2021-10-08 12:54] LABS: HEMATOCRIT 50.9 % (42.0-52.0); HEMOGLOBIN 16.7 g/dl (13.5-17.5); MEAN CORPUSCULAR HEMOGLOBIN 27.6 pg (27.0-33.0); MEAN CORPUSCULAR HGB CONC 32.8 g/dl (32.0-36.5); PLATELET COUNT, AUTOMATED 232 10^3/uL (150-450); RED BLOOD COUNT 6.06 10^6/uL (4.30-6.10); WHITE BLOOD COUNT 5.6 10^3/uL (4.0-10.0)
[2021-10-08 13:04] LABS: INR 0.99; PROTHROMBIN TIME 13.5 SECONDS (12.7-14.5)
[2021-10-08 13:06] LABS: PARTIAL THROMBOPLASTIN TIME 33.7 SECONDS (25.9-37.0)
== END ==
LOC: M SFHCADAM 10:41
PROVIDERS: ATTEND Family Medicine
DX: Z01.818 Encounter for other preprocedural examination (principal); I10 Essential (primary) hypertension; D75.1 Secondary polycythemia; C61 Malignant neoplasm of prostate

== ENCOUNTER → 2021-12-15 | Outpatient (CLI) | payer OTHER ==
[~2021-12-15] MED LIST changes: +TADA5TAB PO
== END ==
LOC: M ADAMS 10:35
PROVIDERS: ATTEND Physician Assistant Medical
DX: C61 Malignant neoplasm of prostate (principal)

== ENCOUNTER → 2022-05-27 | Outpatient (CLI) | payer OTHER | LOC: M PLAIMG 12:45 | PROVIDERS: ATTEND Surgery Vascular Surgery | DX: I72.3 Aneurysm of iliac artery (principal) ==

== ENCOUNTER → 2022-06-16 | Outpatient (REF) | payer OTHER | LOC: M LABDRWAD 13:00 | PROVIDERS: ATTEND Physician Assistant Medical | DX: C61 Malignant neoplasm of prostate (principal) ==

== ENCOUNTER → 2022-09-15 | Outpatient (CLI) | payer OTHER ==
[2022-09-15 13:14] LABS: PROSTATIC SPECIFIC AG MONITOR 0.04 NG/ML (< 4.00)
== END ==
LOC: M LABDRWAD 10:39
PROVIDERS: ATTEND Physician Assistant Medical
DX: C61 Malignant neoplasm of prostate (principal); N52.31 Erectile dysfunction following radical prostatectomy

== ENCOUNTER → 2022-12-18 | Outpatient (REF) | payer OTHER | LOC: M LABDRWAD 16:22 | PROVIDERS: ATTEND Physician Assistant Medical | DX: C61 Malignant neoplasm of prostate (principal) ==

== ENCOUNTER → 2023-09-23 | Outpatient (REF) | payer OTHER ==
[~2023-09-23] MED LIST changes: +IRBE75TA11 PO; -IRBE75TA4 PO
[2023-09-23 19:03] LABS: HEMATOCRIT 53.2 % (42.0-52.0); HEMOGLOBIN 17.9 g/dl (13.5-17.5); MEAN CORPUSCULAR HEMOGLOBIN 29.6 pg (27.0-33.0); MEAN CORPUSCULAR HGB CONC 33.6 g/dl (32.0-36.5); MEAN CORPUSCULAR VOLUME 88.1 fl (80.0-96.0); PLATELET COUNT, AUTOMATED 211 10^3/uL (150-450); RED BLOOD COUNT 6.04 10^6/uL (4.30-6.10); WHITE BLOOD COUNT 7.9 10^3/uL (4.0-10.0)
[2023-09-23 19:07] LABS: ALBUMIN 4.2 G/DL (3.2-5.2); ALKALINE PHOSPHATASE 77 U/L (46-116); ALT/SGPT 26 U/L (7.0-40); AST/SGOT 14 U/L (<34); BILIRUBIN,TOTAL 0.5 MG/DL (0.3-1.2); BLOOD UREA NITROGEN 17 MG/DL (9-23); CALCIUM LEVEL 9.9 MG/DL (8.5-10.1); CARBON DIOXIDE LEVEL 30 MMOL/L (20-31); CHLORIDE LEVEL 104 MMOL/L (98-107); CHOLESTEROL LEVEL 218 MG/DL (<200); CHOLESTEROL RISK RATIO 5.35 (<5); CREATININE FOR GFR 1.09 MG/DL (0.70-1.30); GLOMERULAR FILTRATION RATE > 60.0 (>56); GLUCOSE, FASTING 90 MG/DL (60-100); HDL CHOLESTEROL 40.7 MG/DL (>40); IRON (FE) 57 UG/DL (65-175); LDL CHOLESTEROL 137.3 MG/DL (<100); MAGNESIUM LEVEL 2.2 MG/DL (1.8-2.4); NON-HDL-C 177.3 MG/DL; PERCENT SATURATION 23.4 % (19.7-50.0); POTASSIUM SERUM 5.1 MMOL/L (3.5-5.1); SODIUM LEVEL 137 MMOL/L (136-145); THYROID STIMULATING HORMONE 2.198 uIU/ML (0.55-4.78); TOTAL IRON BINDING CAPACITY 244 UG/DL (250-425); TOTAL PROTEIN 6.8 G/DL (5.7-8.2); TRIGLYCERIDES LEVEL 200 MG/DL (<150)
[2023-09-23 19:08] LABS: FERRITIN 19.3 NG/ML (10.5-307.3); FREE T4 0.98 NG/DL (0.89-1.76)
[2023-09-23 19:26] LABS: HEMOGLOBIN A1c 5.8 % (4.0-6.0)
== END ==
LOC: M SFHCADAM 15:17
PROVIDERS: ATTEND Family Medicine
DX: I10 Essential (primary) hypertension (principal); E78.2 Mixed hyperlipidemia; D75.1 Secondary polycythemia; E83.110 Hereditary hemochromatosis; Z13.1 Encounter for screening for diabetes mellitus; R00.1 Bradycardia, unspecified

== ENCOUNTER → 2023-10-28 | Outpatient (REF) | payer OTHER ==
[2023-10-28 18:36] LABS: PROSTATIC SPECIFIC AG MONITOR 0.05 NG/ML (< 4.00)
== END ==
LOC: M LABDRWAD 17:20
PROVIDERS: ATTEND Urology
DX: Z85.46 Personal history of malignant neoplasm of prostate (principal); N52.31 Erectile dysfunction following radical prostatectomy

== ENCOUNTER → 2024-01-10 | Outpatient (REF) | payer OTHER ==
[2024-01-10 12:49] LABS: HEMATOCRIT 49.7 % (42.0-52.0); HEMOGLOBIN 16.8 g/dl (13.5-17.5); MEAN CORPUSCULAR HEMOGLOBIN 30.7 pg (27.0-33.0); MEAN CORPUSCULAR HGB CONC 33.8 g/dl (32.0-36.5); MEAN CORPUSCULAR VOLUME 90.7 fl (80.0-96.0); PLATELET COUNT, AUTOMATED 205 10^3/uL (150-450); RED BLOOD COUNT 5.48 10^6/uL (4.30-6.10); WHITE BLOOD COUNT 5.6 10^3/uL (4.0-10.0)
[2024-01-10 13:28] LABS: ALKALINE PHOSPHATASE 81 U/L (46-116); ALT/SGPT 27 U/L (7.0-40); AST/SGOT 12 U/L (<34); BILIRUBIN,TOTAL 0.4 MG/DL (0.3-1.2); BLOOD UREA NITROGEN 20 MG/DL (9-23); CALCIUM LEVEL 9.2 MG/DL (8.5-10.1); CARBON DIOXIDE LEVEL 28 MMOL/L (20-31); CHLORIDE LEVEL 106 MMOL/L (98-107); CHOLESTEROL LEVEL 147 MG/DL (<200); CHOLESTEROL RISK RATIO 3.42 (<5); CREATININE FOR GFR 1.06 MG/DL (0.70-1.30); GLOMERULAR FILTRATION RATE > 60.0 (>56); GLUCOSE, FASTING 102 MG/DL (60-100); HDL CHOLESTEROL 42.9 MG/DL (>40); LDL CHOLESTEROL 84.3 MG/DL (<100); NON-HDL-C 104.1 MG/DL; POTASSIUM SERUM 5.1 MMOL/L (3.5-5.1); SODIUM LEVEL 138 MMOL/L (136-145); TOTAL PROTEIN 6.4 G/DL (5.7-8.2); TRIGLYCERIDES LEVEL 99 MG/DL (<150)
[2024-01-10 13:29] LABS: FERRITIN 14.8 NG/ML (10.5-307.3)
== END ==
LOC: M SFHCADAM 10:06
PROVIDERS: ATTEND Family Medicine
DX: E78.2 Mixed hyperlipidemia (principal); D75.1 Secondary polycythemia

== ENCOUNTER → 2024-02-04 | Outpatient (CLI) | payer OTHER | LOC: M RAD 09:55 | PROVIDERS: ATTEND Physician Assistant | DX: I72.3 Aneurysm of iliac artery (principal) ==

== ENCOUNTER → 2024-04-27 | Outpatient (CLI) | payer OTHER | LOC: M RAD 09:29 | PROVIDERS: ATTEND Physician Assistant | DX: I72.3 Aneurysm of iliac artery (principal); K42.9 Umbilical hernia without obstruction or gangrene; M43.17 Spondylolisthesis, lumbosacral region ==

== ENCOUNTER → 2024-05-17 | Outpatient (REF) | payer OTHER | LOC: M LABDRWAD 13:21 | PROVIDERS: ATTEND Physician Assistant Medical | DX: C61 Malignant neoplasm of prostate (principal) ==

== ENCOUNTER → 2024-11-21 | Outpatient (CLI) | payer OTHER ==
[~2024-11-21] MED LIST changes: -TADA5TAB PO; +TADA5TAB2 PO
[2024-11-21 14:30] LABS: PROSTATIC SPECIFIC AG MONITOR 0.04 NG/ML (< 4.00)
== END ==
LOC: M ADAMS 10:38
PROVIDERS: ATTEND Urology
DX: Z85.46 Personal history of malignant neoplasm of prostate (principal)

== ENCOUNTER → 2025-02-26 | Outpatient (REF) | payer OTHER ==
[2025-02-26 14:09] LABS: PLATELET COUNT, AUTOMATED 193 10^3/uL (150-450)
[2025-02-26 14:34] LABS: ESTIMATED AVERAGE GLUCOSE 126.0 MG/DL (60-110)
[2025-02-26 14:38] LABS: ALT/SGPT 40.0 U/L (7.0-40); AST/SGOT 28.0 U/L (<34); CALCIUM LEVEL 9.5 MG/DL (8.5-10.1); CARBON DIOXIDE LEVEL 27.0 MMOL/L (20-31); CHLORIDE LEVEL 100.0 MMOL/L (98-107); CHOLESTEROL LEVEL 151.0 MG/DL (<200); CHOLESTEROL RISK RATIO 4.08 (<5); CREATININE FOR GFR 1.15 MG/DL (0.70-1.30); GLOMERULAR FILTRATION RATE 73.8 (>56); LDL CHOLESTEROL 61.8 MG/DL (<100); NON-HDL-C 114.0 MG/DL; POTASSIUM SERUM 4.8 MMOL/L (3.5-5.1); SODIUM LEVEL 137.0 MMOL/L (136-145); TRIGLYCERIDES LEVEL 261.0 MG/DL (<150)
[2025-02-26 14:41] LABS: FREE T4 1.17 NG/DL (0.89-1.76)
== END ==
LOC: M SFHCADAM 09:28
PROVIDERS: ATTEND Family Medicine
DX: E78.2 Mixed hyperlipidemia (principal); D75.1 Secondary polycythemia; E83.110 Hereditary hemochromatosis; Z13.1 Encounter for screening for diabetes mellitus; G47.33 Obstructive sleep apnea (adult) (pediatric); M10.9 Gout, unspecified

== ENCOUNTER → 2025-05-07 | Outpatient (CLI) | payer OTHER ==
[~2025-05-07] MED LIST changes: +SEMA0.252
== END ==
LOC: M RAD 14:42
PROVIDERS: ATTEND Surgery Vascular Surgery
DX: I72.3 Aneurysm of iliac artery (principal); M47.816 Spondylosis without myelopathy or radiculopathy, lumbar region

== ENCOUNTER → 2025-05-29 | Outpatient (REF) | payer OTHER | LOC: M LABDRWAD 17:23 | PROVIDERS: ATTEND Physician Assistant Medical | DX: C61 Malignant neoplasm of prostate (principal) ==